=== PATIENT | male | born 1995 | race Hispanic/Latino ===

== ENCOUNTER 2017-04-23 11:53 | Emergency (ER) | payer OTHER ==
[~2017-04-23] VITALS: Ht 177.8 cm; Wt 124.7 kg
[2017-04-23] MEDS ORDERED: LIDOCAINE VISC 2% SOLN 15 ML UDC PO ONE (12:00)
== END 2017-04-23 13:10 | disposition home or self-care (01) ==
LOC: ER 11:53
DX: T16.2XXA Foreign body in left ear, initial encounter (principal)
CPT/HCPCS: 99284